=== PATIENT | male | born 1965 | race Caucasian/White ===

== ENCOUNTER 2023-06-10 08:07 | Outpatient (CLI) | payer BC, SELFPAY ==
--- NOTE | ~2023-06-10 | MR_ITS ---
EXAMINATION: MR cervical spine wo con DATE: 06/10/2023 08:52 INDICATION: Neck pain. TECHNIQUE: Magnetic resonance imaging (MRI) of the cervical spine was performed without intravenous c ontrast. Sequences included sagittal T2-weighted FSE, sagittal T2-weighted FS FSE, sagittal T1-weight ed FSE, axial MERGE, and axial T2-weighted FSE. COMPARISON: Cervical spine radiograph 04/23/2023 FINDINGS: There is kyphosis of cervical spine. Vertebral body heights are normal. There is mildly dec reased disc height at C4-C5 and moderately decreased disc height at C5-C6 and C6-C7. The spinal cord signal intensity is normal. The following disc levels are specifically discussed: C2-C3: The disc does not extend beyond the endplate margin. There is no uncovertebral joint osteoarth ritis. There is severe bilateral facet joint osteoarthritis. There is mild right neural foraminal shant nosis. There is no central canal stenosis. C3-C4: The disc is bulging. There is mild bilateral uncovertebral joint osteoarthritis. There is choe re bilateral facet joint osteoarthritis. There is mild bilateral neural foraminal stenosis. There is no central canal stenosis. C4-C5: The disc does not extend beyond the endplate margin. There is mild bilateral uncovertebral radha nt osteoarthritis. There is moderate bilateral facet joint osteoarthritis. There is no neural foramin al stenosis. There is no central canal stenosis. C5-C6: The disc is bulging. There is severe bilateral uncovertebral joint osteoarthritis. There is mi ld bilateral facet joint osteoarthritis. There is moderate bilateral neural foraminal stenosis. There is mild central canal stenosis. C6-C7: The disc is bulging. There is severe bilateral uncovertebral joint osteoarthritis. There is mo derate bilateral facet joint osteoarthritis. There is moderate bilateral neural foraminal stenosis. T here is mild central canal stenosis. C7-T1: The disc does not extend beyond the endplate margin. There is no uncovertebral joint osteoarth ritis. There is mild right and severe left facet joint osteoarthritis. There is mild left neural fora clint stenosis. There is no central canal stenosis. IMPRESSION: 1. Moderate cervical spondylosis. Reviewed, dictated and finalized at location A.
== END 2023-06-10 08:08 | disposition home or self-care (01) ==
PROVIDERS: PCP Nurse Practitioner Family; Visit Provider Nurse Practitioner Family
DX: M47.22 Other spondylosis with radiculopathy, cervical region (principal)
CPT/HCPCS: 72141

== ENCOUNTER 2023-06-18 15:30 | Outpatient (RCR) | payer BC, SELFPAY ==
--- NOTE | 2023-04-30 14:10 | PTOPEVAL1 ---
Assessment and note entered by Emelyn Ruff, PT Evaluation Information Assessment Status Evaluation Diagnosis right shoulder pain Therapy diagnosis abnormal posture, cervicalgia, cervical radiculopathy Subjective Information Pt notes sometimes has pain into elbow and sometimes has tingling into forearm. Can't ever get into comfortable place. Had shoulder pain for last couple years. Has aches and pains but just moves on Seems like after most recent surgery is when started having the most shoulder pain Dec 2021 left distal bicep tear, Oct 2022 right bicep distal tear corrected 01/15/2023 ulnar nerve move LUE Reported Pain Level Pain Score 8: Self Report Assessment PT Clinical Summary Pt presents with c/o right shoulder pain that has increased recently. Pt demos full ROM bilat shoulders without pain. However pt does show increased muscle tone, tenderness, decresaed ROM of cervical spine, abnormal cervical spine alignment, and (+) symptoms with end-ranges of cervical spine. Evaluation suggests cervical radiculopathy as cause of right shoulder pain. Thus patient will benefit from physical therapy to address deficits, reduce pain, and improve pain- free function. Plan of Care Interventions Electrical Stimulation,Hot Pack/Cold Pack,Manual Therapy,Mechanical Traction,Neuro Re-education, Patient/Caregiver Educati,Therapeutic Activities, Therapeutic Exercise,Ultrasound PT Services Indicated Yes Treatment Frequency and 2x weekly x 8 weeks Duration These treatments will address the objective and functional deficits as defined above. The patient will be advanced safely and appropriately in order for the patient to progress towards his/her prior level of function. Additional exercises will be introduced and as well as a comprehensive home exercise program upon discharge, if needed, ?to ensure carryover of functional gains achieved in the clinic. This treatment plan has been reviewed and agreement upon by the patient.
--- NOTE | 2023-04-30 14:21 | OPREHPOC ---
Outpatient Therapy Plan of Care This is a Multidisciplinary Plan of Care that may contain components documented by all disciplines (PT, OT, and ST.) PT Problem 1 PT Problem #1 Knowledge Deficit PT Goal 1 Goal Pt will be independent in HEP Target Visit 8 PT Goal 2 Goal Pt will verbalize understanding of diagnosis and prognosis Target Visit 8 PT Problem 2 PT Problem #2 Pain PT Goal 1 Goal Pt will report greatest pain level at 3/10 or less Target Visit 8 PT Goal 2 Goal Pt will report resolution of pain Target Visit 16 PT Problem 3 PT Problem #3 Impaired Range of Motion PT Goal 1 Goal Pt will demo cervical ROM to 75% or normal Target Visit 16 PT Problem 4 PT Problem #4 Impaired Sensation PT Goal 1 Goal Pt will report centralization of numbness and tingling Target Visit 8 PT Goal 2 Goal Pt will report resolution of numbness and tingling Target Visit 16
--- NOTE | 2023-05-22 17:37 | PTOPEVAL1 ---
Assessment and note entered by Emelyn Ruff, PT Assessment Status Progress Report Diagnosis right shoulder pain Therapy conditions Cervicalgia, radiculopathy, postural abnormality Subjective Information Pt reports maybe a little bit of improvement overall, like in the mornings the most. Seen a difference since the last couple treatments. Has been really sore the last few sessions after traction. Still has pulling into chest and shoulder, fingers are still numb Reported Pain Level Pain Score 6: Self Report Assessment PT Clinical Summary Pt cont to appear highly inflammed in cervical spine with radicular symptoms. Appears isolated to the C7-T1 area. Demo's some improvements in cervical range of motion with less pain during motion. Recently initiated cervical traction which has begun to provide mild relief. However pt cont to have significant tightness and reduced cervical motion overall as well as high level of pain. Thus pt will benefit from continued therapy to address deficits with consideration of referral for further imaging. Plan of Care Interventions Electrical Stimulation,Hot Pack/Cold Pack,Manual Therapy,Mechanical Traction,Neuro Re-education, Patient/Caregiver Educati,Therapeutic Activities, Therapeutic Exercise,Ultrasound PT Services Indicated Yes Treatment Frequency and Cont POC 2x weekly x 4 weeks Duration These treatments will address the objective and functional deficits as defined above. The patient will be advanced safely and appropriately in order for the patient to progress towards his/her prior level of function. Additional exercises will be introduced and as well as a comprehensive home exercise program upon discharge, if needed, ?to ensure carryover of functional gains achieved in the clinic. This treatment plan has been reviewed and agreement upon by the patient.
--- NOTE | 2023-06-09 15:05 | PCPTNOTE ---
Patient called & cancelled scheduled appointment this date due to increased pain since yesterday. Is scheduled for an MRI tomorrow.
--- NOTE | 2023-06-16 15:37 | PCPTNOTE ---
Patient called & cancelled scheduled appointment this date due to pain. Is going to seek Neuro surgery. Agreed to last appointment scheduled for discharge
--- NOTE | 2023-06-18 16:25 | PTOPDC ---
Assessment and note entered by Emelyn Ruff, PT Discharge Report Assessment Status Discharge Diagnosis right shoulder pain Subjective Information Pt would get some improvement from therapy then pain would return. Fingers are still numb, and never are not numb. Sometimes is a little worse and sometime less. Still tight in chest and pain in chest and shoulder blade. Has referral for pain management and Neuro surgery Pt recently returned to primary and received Meloxicam helped some. Reported Pain Level Pain Score 5: Self Report Assessment PT Clinical Summary Pt had appeared to be making some progress with the addition of traction. Plan of care attempted traction, ultrasound, e-stim, deep tissue and trigger point work, joint mobilization, scapular and muscle stabilization, muscular reeducation, and taping to improve patient's pain and discomfort. Pt has been consistent with his therapy and compliant in all instruction. Unfortunately pt has not improved with therapy, thus is being discharged and will benefit from next level of care assessments.
== END 2023-06-20 10:17 | disposition home or self-care (01) ==
LOC: ANHHIPT 15:30
PROVIDERS: PCP Nurse Practitioner Family; Visit Provider Nurse Practitioner Family
DX: M54.2 Cervicalgia (principal); M25.511 Pain in right shoulder
CPT/HCPCS: 97012; 97014; 97035; 97110; 97112; 97140; 97161; 97750; G0283

== ENCOUNTER 2025-07-20 15:30 | Outpatient (RCR) | payer BC, SELFPAY ==
--- NOTE | 2025-06-02 10:46 | PTOPEVAL1 ---
Assessment and note entered by Emelyn Ruff, PT Evaluation Information Assessment Status Evaluation Diagnosis left knee, left sciatica ICD-10 Condition Codes (PT) Pain in left knee M25.562 Onset knee 3 weeks, sciatic Subjective Information Pain went left buttock down left leg. Was pushing through it. Was within the last 3 months. left knee Was putting his fire boots on and when pulling on felt something in the left side of back, and that was quite a few weeks before knee issue With knee, [place] while [place] the races and left knee popped and felt like it wanted to give out about 3 weeks ago. Stayed home about 3 day for that. Wore a knee brace for a time then weaned himself off and was better but still has times it feels not right. Uses brace still for uneven ground. Discomfort in the inside and under and outside and under knee. When riding in his truck, getting out of the truck both the knee and the leg seem to flare up. Once gets moving is fine. Sitting seems to be the worst of it, any period more than 10 minutes. Standing wont feel it in the left cheek, but standing too long will increase pain Reports with knee pain will come and go, notices knee pain wiht steps if leading and going up with left leg. Sitting can feel it in the cheek for the left hip Reported Pain Level Pain Score 3,0: Self Report Assessment PT Clinical Summary Pt presents with complaints of LLE sciatica and left knee pain from two separate occasions. Knee special tests suggest all structures are intact, and possible mild/moderate muscle strain as initial injury with residual discomfort and weakness. Left sided sciatic nerve discomfort appears to be related to pelvic positioning, and gluteal weakness and irritation. Patient will benefit from physical therapy in order to address deficits, improve pain, and return to pain-free lifestyle Plan of Care Interventions Electrical Stimulation,Hot Pack/Cold Pack,Manual Therapy,Neuro Re-education,Patient/Caregiver Education,Therapeutic Activities,Therapeutic Exercise,Self-Care/Home Management,Ultrasound, Other Other Interventions taping, bracing PT Services Indicated Yes Treatment Frequency and 1-2x weekly x 16 visits Duration These treatments will address the objective and functional deficits as defined above. The patient will be advanced safely and appropriately in order for the patient to progress towards his/her prior level of function. Additional exercises will be introduced and as well as a comprehensive home exercise program upon discharge, if needed, ?to ensure carryover of functional gains achieved in the clinic. This treatment plan has been reviewed and agreement upon by the patient.
--- NOTE | 2025-06-02 10:46 | OPREHPOC ---
Outpatient Therapy Plan of Care This is a Multidisciplinary Plan of Care that may contain components documented by all disciplines (PT, OT, and ST.) PT Problem 1 PT Problem #1 Knowledge Deficit PT Goal 1 Goal / Goal Update Pt will be independent in HEP Pt will verbalize understanding of diagnosis and prognosis Target Visit 8 PT Problem 2 PT Problem #2 Pain PT Goal 1 Goal / Goal Update Pt will report greatest pain level at 3/10 or less to improve ADLs and activities Target Visit 8 PT Goal 2 Goal / Goal Update Pt will report resolution of pain to return to PLOF Target Visit 16 PT Problem 3 PT Problem #3 Impaired Strength PT Goal 1 Goal / Goal Update Pt will demo equal strength RLE and LLE in all tested planes Target Visit 8 PT Goal 2 Goal / Goal Update Pt will demo 4/5 or greater strength in BLE to improve knee and lumbopelvicstabilty with activities Target Visit 16
--- NOTE | 2025-06-23 08:37 | PTOPPROG ---
Assessment and note entered by Emelyn Ruff, PT Evaluation Information Assessment Status Progress Diagnosis left knee, left sciatica ICD-10 Condition Codes (PT) Pain in left knee M25.562 Onset knee 3 weeks, sciatic Subjective Information Left side sciatica doesn't go down the leg anymore . Notices it the most with sitting and sometimes with bending but doesn't think is always bending correctly Irritating with longer instances of sitting. Was in a car 2.5 hours and had difficulty getting the leg moving again. Improvement with sciatica: 50% Left knee outside is mostly better but still sometimes acts up. Still feels unstableness Inside of the knee is still about the same. Hasn't improved. There are times the inside of the knee, won't notice and then there are times will notice it. Improvement: 25-30% improvement Assessment PT Clinical Summary Pt has attended therapy consistently for sciatica LLE and left knee pain that appear as separate issues. Pt reports minimal progress in his medial knee pain, flare up of lateral knee pain appears resolved, and sciatica symptoms pt reports are 50% improved. Today he demonstrates leg length discrepancy with pelvic alignment being corrected. Reports decreased sciatic discomfort in buttock with lumbar distraction but no effect on medial knee pain. Attempted stabilizer brace with no effect on medial knee pain. Added lumbar traction today to POC, and discussed possibility of ortho referral for knee if does not improve with this next round of therapy. Will benefit from cont therapy to continue to address pain, flexibility and alignment deficits, and improve function. Plan of Care Interventions Electrical Stimulation,Hot Pack/Cold Pack,Manual Therapy,Mechanical Traction,Neuro Re-education, Patient/Caregiver Education,Therapeutic Activities ,Therapeutic Exercise,Self-Care/Home Management, Ultrasound,Other Other Interventions taping, bracing PT Services Indicated Yes Treatment Frequency and 1-2x weekly cont poc Duration These treatments will address the objective and functional deficits as defined above. The patient will be advanced safely and appropriately in order for the patient to progress towards his/her prior level of function. Additional exercises will be introduced and as well as a comprehensive home exercise program upon discharge, if needed, ?to ensure carryover of functional gains achieved in the clinic. This treatment plan has been reviewed and agreement upon by the patient.
--- NOTE | 2025-07-20 16:19 | PTOPDC ---
Assessment and note entered by Emelyn Ruff, PT Evaluation Information Assessment Status Discharge Diagnosis left knee, left sciatica ICD-10 Condition Codes (PT) Pain in left knee M25.562 Onset knee 3 weeks, sciatic Subjective Information Sciatica is 90% improved, every now and then gets a little flare up but is able to manage it. Sitting is still problematic, has fewer flare ups. Knee is about the same as last time. States earlier this week felt pain underneath knee cap and felt like the knee wanted to give out Reported Pain Level Pain Score 3,1: Self Report Assessment PT Clinical Summary Pt has attended therapy consistently for left hip/ sciatica and left knee pain which appear as two different issues. The left sciatica patient reports is 90% improved, with fewer flare ups and is able to manage these flareups. His knee pain has not changed much, and is still variable in intensity with only consistent factor being weight bearing. Knee strength has improved overall, and he shows some mild (+) special testing suggestive of meniscal involvement though is inconclusive. Pt appears to have met max benefit from therapy at this time and will benefit from further left knee imaging and referral to orthopedist for deeper evaluation of knee impairment. Left hip/sciatica is improved but may be lagging due to knee abnormality. Discussed with patient addressing left knee and then reassessment of left sciatica if necessary in the future. Thus patient is being discharged from therapy plan of care for max benefit being met. Plan of Care PT Services Indicated No
== END 2025-07-20 16:22 | disposition home or self-care (01) ==
LOC: ANHHIPT 15:30
PROVIDERS: PCP Physician Assistant Medical; Visit Provider Physician Assistant Medical
DX: M25.562 Pain in left knee (principal); M54.32 Sciatica, left side
CPT/HCPCS: 97014; 97035; 97110; 97140; 97161; 97530; 97750; G0283

== ENCOUNTER 2025-08-22 00:21 | Day surgery (SDC) | payer BC, SELFPAY ==
--- NOTE | 2025-08-15 09:30 | SUR.PREOP ---
[facility] has started construction of its new state of the art ER which will open Spring 2026. With this, we anticipate parking may be a challenge for some our surgical patients and families. Parking spaces are limited but are available for all Surgical, obstetrics, and ER patients sharing this lot. If you arrive and find you are having a hard time finding a parking space, please note that we understand the challenges, please drive around the hospital and park near Hospital Entrance 1. When you enter this entrance, you can ask a volunteer to direct or take you back to the surgical waiting area to check in. We appreciate everyone?s understanding of these expected challenges while we build for your future. Report to the Outpatient Waiting Room, entrance under the green pavilion located off [address], at time _0730_ on date _08/22/25_. Planned Procedure Time: _0930_.? Time changes happen often and if your time is changed the preop area will call you the afternoon before. - You and your visitor will be asked to self-screen and do not enter if you have any COVID symptoms. Please call surgeon if you need to reschedule. - A mask is optional within the hospital at this time. Patients may have clear liquids (water, carbonated beverages, clear teas, apple juice) until 3 hours (0630) prior to surgery with a maximum of 20 ounces. - No food from midnight until time of surgery and no smoking, or chewing tobacco (or any form of nicotine). No chewing gum, candy or mints. Take only the following medications with a SIP of water on the morning of surgery: _NA_ DO NOT STOP ANY OF YOUR OTHER PRESCRIPTION MEDICATIONS PRIOR TO SURGERY EXCEPT THE FOLLOWING Hold all vitamins and supplements for 3 days per anesthesiologist. Medications to discontinue per physician _NA_ Date to take last dose_NA_ Please no make-up, nail salvadorean, hairspray, perfume, deodorant, or body powder the day of surgery.? No jewelry (including any body piercings) or valuables the day of surgery, leave them at home.? Please take a shower or bath the night before, or the morning of, surgery with an antibacterial soap.? Wear comfortable, loose fitting clothing. - Jewelry must be removed prior to entering the operating room.? Rings and piercings that are not removed may be cut off. - The hospital will not accept responsibility for valuables.? - Please leave all valuables, including medications, at home the day of surgery. If you are going home after surgery, a licensed four horse hitch driver must drive you home.? - NO public transportation without another adult if you receive anesthesia. - We recommend that an adult stay with you for 24 hours following discharge. - We also recommend that you do not drive, make important decision, drink alcoholic beverages, or take any drugs that were not prescribed by your health care provider for at least 24 hours after your discharge time. Follow any additional instructions given to you from your surgeon. Telephone instructions given to _TOM_and asked if any additional questions and then verbalized understanding. Patient advised to call surgeon office or pre surgery nurse liaison [phone] if any additional questions.
[2025-08-15 09:36] VITALS: BMI 33.5
--- NOTE | 2025-08-18 07:05 | PM.IMHP ---
H&P: HPI History of Present Illness Date/Time: 08/18/25 07:05 Chief Complaint: Patient has a painful left knee. He has catching locking him mechanical-type symptoms. He has failed conservative treatment like to consider surgical intervention. Review of Systems Musculoskeletal: Musculoskeletal: Reports arthralgias, Reports joint swelling and Reports stiffness Neurologic: Reports abnormal gait [facility] Past Medical History Medical History Hyperglycemia GERD (gastroesophageal reflux disease) Vitamin D deficiency Biceps muscle tear Hypertriglyceridemia Surgical History Surgical History History of surgery on upper extremity bilateral bicep tendon repair and ulnar nerve moved left 12/2021 History of umbilical hernia repair 02/24/24 Family History Family History (Updated 08/11/25 @ 09:34 by Carolina Vieira CMA) Father Arthritis Heart disease Hypertension Mother Arthritis Diabetes mellitus Heart disease Kidney disease Cerebrovascular accident Sibling No problems noted. Sibling No problems noted. Social History Social History (Updated 08/11/25 @ 09:35 by Shanna Ivy CMA) Social History: 04/11/25 Very confident with medical forms 05/17/25 declined SDOH Smoking status: Never smoker Smokeless tobacco user: chewing tobacco Second hand tobacco smoke exposure: No Alcohol intake: never Alcohol use details: SOCIALLY Substance use: never Substance use type: does not use Current Housing: Decline to Answer Concerned About Future Housing: Decline to Answer Difficulty Paying Gas/Electric Bills: Decline to Answer Difficulty Paying for Meds: Decline to Answer Currently Unemployed: Decline to Answer Education: Decline to Answer Difficulty w/ Childcare or Family Care: Decline to Answer Living arrangements: with family Occupation/Education: occupation Gender identity (if verbalized by the patient): Male Sexual Orientation (if Verbalized by the Patient): Straight or Heterosexual Spiritual care concerns: No Meds Home Medications and Allergies Home Medications ?Medication ?Instructions ?Recorded ?Confirmed ?Type famotidine 20 mg tablet 20 mg PO DAILY 09/18/22 08/15/25 History vitamins A,C,J-cyrt-wjrsng 4,296 1 cap PO QAM AND QPM 09/18/22 08/15/25 History mcg-226 mg-90 mg capsule (PreserVision AREDS) fenofibrate nanocrystallized 145 145 mg PO DAILY #90 tabs 04/18/25 08/15/25 Rx mg tablet Allergies Allergy/AdvReac Type Severity Reaction Status Date / Time No Known Allergies Allergy Verified 08/15/25 09:23 Exam Narrative: On exam he is tender to palpation medially on the left knee. He has catching locking and pain with any manipulation. He has mechanical-type symptoms. And a positive Parminder's sign. Neurologically appears to be intact. He walks with an antalgic gait. Eyes: General: appearance normal, both eyes and all related structures Neck: Neck: supple Resp: Effort & Inspection: normal respiratory effort Cardio: Rate: regular rate Rhythm: regular rhythm Knee X-Ray 05/03/25 Shoulder X-Ray 04/23/23 Cervical Spine X-Ray 04/23/23 Cervical Spine MRI 06/10/23 Assessment and Plan Assessment and plan (1) Acute medial meniscus tear of left knee: Code(s): S83.242A - Other tear of medial meniscus, current injury, left knee, initial encounter Status: Acute Assessment and Plan: Patient is knee pain left. He has a large the tear of the medial meniscus. He has mechanical-type symptoms and has failed conservative treatment. I discussed the risks, benefits, limitations, and alternatives with the patient in detail. He would like to proceed with arthroscopic intervention of his left knee partial meniscectomy proceed as indicated. Will proceed per his request.
[2025-08-22] VITALS (8 sets, daily range): BP systolic 107–153; BP diastolic 66–89; PULSE 72–90; RESP 15–19; TEMP 36.3–36.8; O2SAT 92–98
--- OUTSIDE RECORDS SUMMARY | 2025-08-22 00:25 | XMS_ITS | Clinical Summary ---
Author Organization [facility] Address [facility] [place] [address] Care Team Providers Care Security Sales Manager Name Role Phone Mary Bullard PA-C Primary Care Provider [phone]- [phone] Allergies No known active allergies Medications fenofibrate (TRICOR) 145 MG tablet Take 1 tablet (145 mg total) by mouth nightly at bedtime. 12/22/2023 Active vitamin D2, ergocalciferol, (DRISDOL) 1.25 mg capsule Take 1 capsule (1.25 mg total) by mouth once a week. 12/02/2023 Active famotidine (PEPCID) 20 MG tablet Take 1 tablet (20 mg total) by mouth nightly as needed for Heartburn. Active Multiple Vitamins-Minera ls ([facility] FORMULA EYE HEALTH) Cap Active oxyCODONE-aceta minophen (PERCOCET) 5-325 MG tabletIndicatio ns:Acute Pain < 7 Day Supply Take 1 tablet by mouth every 6 (six) hours as needed for Pain. Indications: Acute Pain < 7 Day Supply For Severe Pain 8 tablet 02/24/2024 Active Active Problems No known active problems Resolved Problems Problem Noted Date Diagnosed Date Resolved Date Umbilical hernia without obs truction or gangrene 01/09/2024 04/26/2024 Encounters Date Type Department Care Team Description 08/10/2025 6:44 AM CDT - 08/10/2025 11:59 PM CDT Hospital Encounter [facility] [address] [place] [address] Marisol Shrestha PA Discharge Disposition: Home or Self Care (Routine Discharge) 08/10/2025 Travel from Last 3 Months Social History Tobacco Use Types Packs/Day Years Used Date Smoking Tobacco: Never Smokeless Tobacco: Never Tobacco Cessation:Counseling Given: Not Answered Alcohol Use Standard Drinks/Week Comments Never 0 (1 standard drink = 0.6 oz pur e alcohol) Sex and Gender Information Value Date Recorded Sex Assigned at Male 08/02/2025 2:35 PM CDT 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 Gender Identity Not on file Sexual Orientation Not on file Last Filed Vital Signs Vital Sign Reading Time Taken Comments Blood Pressure 143/86 04/26/2024 2:39 PM CDT Pulse 75 04/26/2024 2:39 PM CDT Temperature 36.7 C (98.1 F) 04/26/2024 2:39 PM CDT Respiratory Rate 16 04/26/2024 2:39 PM CDT Oxygen Saturation 98% 04/26/2024 2:39 PM CDT Inhaled Oxygen Concentration - - Weight 98.9 kg (218 lb) 04/26/2024 2:39 PM CDT Height 177.8 cm (5' 10) 04/26/2024 2:39 PM CDT Body Mass Index 31.28 04/26/2024 2:39 PM CDT Plan of Treatment Health Maintenance Due Date Last Done Comments Colorectal Cancer Screening Colonoscopy (10 Years) 1967 Annual Physical 1970 Hepatitis C 1985 Hepatitis B Vaccines (1 of 3 - 19+ 3-dose series) 1986 Pneumococcal Vaccine: 50+ Ye ars (1 of 1 - PCV) 2017 Zoster Vaccines (1 of 2) 2017 PHQ-2 (Physician [place]) 11/03/2024 COVID-19 Vaccine (1 - 2023-2 5 season) 2025 Influenza Adult (#1) 2025 DTaP, Tdap and Td Vaccines ( 2 - Td or Tdap) 12/30/2027 12/30/2017 Hepatitis A Vaccines Aged Out No long er eligible based on patient's age to complete this topic Meningococcal B Vaccine Aged Out No l onger eligible based on patient's age to complete this topic Meningococcal Vaccine Aged Out No nelly clement eligible based on patient's age to complete this topic RSV Immunizations Under 20 Months Aged Out No longer eligible based on patient's age to complete this topic Medical Devices Implanted Type Area Lens Grinding Machine Operator Device Identifier Shelf Expiration Date Model / Serial / Lot Phasix St Mesh With Echo 2 Positioning System Implanted:Qty: 1 on 02/24/2024 by Marisa Loza MD at [facility] [place] N/A: Umbilical [employer] [id number] 07/31/2024 [id number] / / [id number] Procedures Procedure Name Priority Date/Time Associated Diagnosis Comments MRI KNEE LT WO CON Routine 08/10/2025 7: 19 AM CDT Pain in left knee from Last 3 Months Results * MRI KNEE LT WO CON (08/10/2025 7:19 AM CDT) Anatomical Region Laterality Modality Knee Magnetic Resonan ce 08/10/2025 10:5 1 AM CDT Impressions 08/10/2025 10:58 AM CDT IMPRESSION: 1. Complete radial tear of the posterior root medial meniscus. Horizontal tear to the posterior horn and body. Associated extrusion of the body. 2. Early partial-thickness chondral fissuring and all 3 compartments. There is a full-thickness fissure at the trough of the trochlea as well. 3. Acute grade 1 strain medial collateral ligament. Acute mild strain of the iliotibial band. 4. Small joint effusion. Ordered By: MARISOL SHRESTHA Interpreted By: Alex Lambert, 08/10/2025 10:51 AM Narrative 08/10/2025 10:[address] [facility] [address] [place] [address] EXAMINATION: MRI LEFT KNEE WITHOUT CONTRAST EXAM DATE: 08/10/2025 6:54 AM REASON FOR EXAM: Pain in left knee Knee pain COMPARISON: None TECHNIQUE: Multiplanar multisequence imaging of the knee without intravenous contrast. FINDINGS: Moderate subcutaneous edema. Small joint effusion. Medial collateral ligament: Acute grade 1 strain. Lateral collateral ligament and biceps femoris tendon: Intact. Iliotibial band: Acute mild strain. Cruciates: Anterior and posterior cruciate ligaments intact. Extensor mechanism: Quadriceps tendinosis and suprapatellar enthesopathy. No evidence of extensor mechanism tear. Menisci: Complete radial tear of the posterior root medial meniscus. Horizontal tear to the posterior horn and body. Associated extrusion of the body. Cartilage: Early partial-thickness chondral fissuring and all 3 compartments. There is a full-thickness fissure at the trough of the trochlea as well. Bone marrow: No suspicious lesion or fracture. Procedure Note Alex Lambert MD - 08/10/2025 [facility] [address] [address] [place] [address] EXAMINATION: MRI LEFT KNEE WITHOUT CONTRAST EXAM DATE: 08/10/2025 6:54 AM REASON FOR EXAM: Pain in left knee Knee pain COMPARISON: None TECHNIQUE: Multiplanar multisequence imaging of the knee withoutintravenous contrast. FINDINGS: Moderate subcutaneous edema. Small joint effusion. Medial collateral ligament: Acute grade 1 strain. Lateral collateral ligament and biceps femoris tendon: Intact. Iliotibial band: Acute mild strain. Cruciates: Anterior and posterior cruciate ligaments intact. Extensor mechanism: Quadriceps tendinosis and suprapatellar enthesopathy.No evidence of extensor mechanism tear. Menisci: Complete radial tear of the posterior root medial meniscus.Horizontal tear to the posterior horn and body. Associated extrusion ofthe body. Cartilage: Early partial-thickness chondral fissuring and all 3compartments. There is a full-thickness fissure at the trough of thetrochlea as well. Bone marrow: No suspicious lesion or fracture. IMPRESSION: 1. Complete radial tear of the posterior root medial meniscus. Horizontaltear to the posterior horn and body. Associated extrusion of the body. 2. Early partial-thickness chondral fissuring and all 3 compartments.There is a full-thickness fissure at the trough of the trochlea as well. 3. Acute grade 1 strain medial collateral ligament. Acute mild strain ofthe iliotibial band. 4. Small joint effusion. Ordered By: MARISOL SHRESTHA Interpreted By: Alex Lambert, 08/10/2025 10:51 AM Marisol DING MRI Final Result from Last 3 Months Insurance [facility] Care Teams Security Sales Manager Relationship Specialty Start Date End Date Mary Bullard PA-C [address] [place] [address] [address] [place] [address] PCP - General PHYSICIAN DUAL RATE SUPERVISOR 01/08/24
--- NOTE | 2025-08-22 07:31 | ECG_ITS ---
Test Date: 2025-08-22 08:16:06 Measurements Intervals [place] Rate: 73 P: 31 [place]: 156 QRS: -4 QRSD: 104 T: 9 QT: 376 QTc: 417 Interpretive Statements SINUS RHYTHM NORMAL ECG No previous ECG available for comparison Electronically Signed On 08-22-2025 08:30:57 CDT by Beto Lucero D.O.
[2025-08-22] MEDS: ACETAMINOPHEN 500 MG TABLET 1000 MG PO (07:52)
[2025-08-22] MEDS: LACTATED RINGERS 1,000 ML 30 ML IV CONT (08:00)
[2025-08-22] MEDS: KETOROLAC 15 MG/ML VIAL (*BKC) IV PUSH (08:02)
--- NOTE | 2025-08-22 08:02 | P.PNAN_ITS ---
Anes - Initial Pre Proc Eval Procedure: Operation Date: 08/22/25 09:30 Proposed Procedures p Left Knee Arthroscopy with Partial Meniscectomy, Proceed as Indicated - Danielito Summers MD Date/Time: 08/22/25 08:02 Surgeon: Danielito Summers MD Pre Op Diagnosis: Medial Meniscus tear left knee Patient Data Age: 59 Gender: M Height: 1.73 m Weight: 100 kg Allergies Allergy/AdvReac Type Severity Reaction Status Date / Time No Known Allergies Allergy Verified 08/22/25 08:14 Home Medications ?Medication ?Instructions ?Recorded ?Confirmed ?Type famotidine 20 mg tablet 20 mg PO DAILY 09/18/2208/04 History vitamins A,C,H-hgjy-blgxkl 4,296 1 cap PO QAM AND QPM 09/18/22 08/22/25 History mcg-226 mg-90 mg capsule (PreserVision AREDS) fenofibrate nanocrystallized 145 145 mg PO DAILY #90 t abs 04/18/25 08/22/25 Rx mg tablet hydrocodone 5 mg-acetaminophen 325 1 tablet PO Q4H PRN pain #30 tabs 08/22/25 Rx mg tablet Patient hx anesthesia problems: none Family hx anesthesia problems: none Results Review: All pre-operative results and documents have been reviewed as part of the pre- operative evaluation. [facility] Past Medical History Medical History (Updated 08/22/25 @ 09:26 by Braulio Malcolm DO) TRAMAINE (obstructive sleep apnea) Hyperlipidemia Hyperglycemia GERD (gastroesophageal reflux disease) Vitamin D deficiency Biceps muscle tear Hypertriglyceridemia Surgical History Surgical History History of surgery on upper extremity bilateral bicep tendon repair and ulnar nerve moved left 12/2021 History of umbilical hernia repair 02/24/24 Family History Family History (Updated 08/11/25 @ 09:34 by Carolina Vieira CMA) Father Arthritis Heart disease Hypertension Mother Arthritis Diabetes mellitus Heart disease Kidney disease Cerebrovascular accident Sibling No problems noted. Sibling No problems noted. Social History Social History (Updated 08/11/25 @ 09:35 by Shanna Ivy CMA) Social History: 04/11/25 Very confident with medical forms 05/17/25 declined [facility] Smoking status: Never smoker Smokeless tobacco user: chewing tobacco Second hand tobacco smoke exposure: No Alcohol intake: never Alcohol use details: SOCIALLY Substance use: never Substance use type: does not use Current Housing: Decline to Answer Concerned About Future Housing: Decline to Answer Difficulty Paying Gas/Electric Bills: Decline to Answer Difficulty Paying for Meds: Decline to Answer Currently Unemployed: Decline to Answer Education: Decline to Answer Difficulty w/ Childcare or Family Care: Decline to Answer Living arrangements: with family Occupation/Education: occupation Gender identity (if verbalized by the patient): Male Sexual Orientation (if Verbalized by the Patient): Straight or Heterosexual Spiritual care concerns: No Anes - Eval Final PreProcedure Day of Procedure 08/22/25 08:02 Patient weight: obese Heart: regular rate and rhythm Lungs: clear to auscultation Airway: Mallampati scale class III Neurological: alert and oriented Last oral intake: >/= 8 hours ASA classification: III Emergent: no Anesthetic plan: proceed Anesthesia type and monitoring: general LMA and standard monitoring Results Review: All pre-operative results and documents have been reviewed as part of the pre- operative evaluation. Informed Consent: The patient's anesthetic plan and its attendant risks and benefits were discussed with the patient/family/POA. Questions were solicited and answers provided to the satisfaction of the patient/family/POA.
--- NOTE | 2025-08-22 08:50 | WPDHPUPDATE1 ---
History and Physical Update Update Date/Time: 08/22/25 08:50 History and Physical has been reviewed, including an updated exam of the patient. There are NO changes in the patient's condition. Risks, benefits, and alternatives have been discussed and questions answered. Patient agrees to proceed with procedure. Will proceed with arthroscopy partial meniscectomy proceed as indicated. He understands that I can not change any degenerative changes he has but should be able to clean up the meniscus.
[2025-08-22] MEDS: ceFAZolin 2 GM in SODIUM CHLORIDE 0.9% IV 50 ML 100 ML IVPB (09:37)
[2025-08-22] MEDS: LIDO 1%/EPINEPHRINE 1:100,000 50 ML VIAL (10:00)
--- NOTE | 2025-08-22 10:22 | W.PM.PROC2 ---
Procedure Note - Detailed Date of Procedure 08/22/25 Pre-op Diagnosis Medial Meniscus tear LEFT knee Post-op Diagnosis Same Procedure Performed LEFT knee arthroscopy with partial meniscectomy Surgeon Danielito Summers MD Anesthesia General Indications Pain, Locking and Catching Description of Procedure Patient brought to operating room # 7. An anesthetic was administered. The knee was sterilely prepped and draped in the usual manner. Standard portals were used. Superior medial portal was used for the outflow cannula, inferior lateral portal was used for the scope, inferior medial portal was used for the instruments. Arthroscopy was performed, the patellar femoral joint degenerative changes (Grade 3-4). The medial compartment showed a complex tear. The lateral compartment showed fraying. The ACL was intact. Using baskets and asher the meniscal tear was trimmed back to a stable base so the nothing further could be pulled into the joint. Any loose or delaminated fragments were gently trimmed to a stable base. A large plica was noted which was debrided at this time. At this point the instruments were withdrawn, sutures placed and patient left the operating room in satisfactory condition. Estimated Blood Loss 20 Drains No Packing No Pathology None sent Complications No immediate complications Condition Stable Disposition PACU [facility] Billing Surgery - Charge Forward: Surgery Billing ([id number] [facility])
[2025-08-22] MEDS: fentaNYL CITRATE INJ (*CRX) 100 MCG/2 ML VIAL 25 MCG IV PUSH ×4 (11:04→11:10)
[2025-08-22] MEDS: oxyCODONE HCL (*CRX) 5 MG TAB IR PO (11:50)
== END 2025-08-22 12:15 | disposition home or self-care (01) ==
PROVIDERS: PCP Physician Assistant Medical; Visit Provider Orthopaedic Surgery
PROC: (CPT 29870; principal; 2025-08-22 09:30)
DX: S83.232A Complex tear of medial meniscus, current injury, left knee, initial encounter (principal); E78.5 Hyperlipidemia, unspecified; K21.9 Gastro-esophageal reflux disease without esophagitis; E55.9 Vitamin D deficiency, unspecified; G47.33 Obstructive sleep apnea (adult) (pediatric); R73.9 Hyperglycemia, unspecified; E78.1 Pure hyperglyceridemia; F17.220 Nicotine dependence, chewing tobacco, uncomplicated; X58.XXXA Exposure to other specified factors, initial encounter; E66.9 Obesity, unspecified; Z68.34 Body mass index [BMI] 34.0-34.9, adult; Z79.891 Long term (current) use of opiate analgesic; Z98.890 Other specified postprocedural states; Z82.49 Family history of ischemic heart disease and other diseases of the circulatory system
CPT/HCPCS: 29881; 93005; J0690; A9270; J1100; J1885; J2003; J2004; J2250; J2405; J2704; J3010; J7120